=== PATIENT | female | born 1975 ===

== ENCOUNTER 2023-11-17 00:33 | Day surgery (SDC) | payer OTHER, SELFPAY ==
[2023-11-10 16:02] VITALS: BMI 40.3
--- NOTE | 2023-11-16 17:27 | WPDANESEPP ---
Anes - Eval Pre Procedure Procedure: Operation Date: 11/17/23 09:00 Proposed Procedures p Esophagogastroduodenoscopy & Colonoscopy - Tl Floyd MD Date/Time: 11/16/23 17:27 Pre Op Diagnosis: Anemia unspecified Patient Data Age: 48 Gender: F Height: 1.6 m Weight: 103.25 kg Allergies Allergy/AdvReac Type Severity Reaction Status Date / Time tramadol Allergy Severe Seizure Verified 11/10/23 15:56 Penicillins Allergy Unknown Unknown Verified 11/10/23 15:56 Home Medications Medication Instructions Recorded Confirmed Type aspirin 81 mg tablet 81 mg PO DAILY 11/10/23 11/10/23 History atorvastatin 10 mg tablet 10 mg PO HS 11/10/23 11/10/23 History citalopram 40 mg tablet 40 mg PO DAILY 11/10/23 11/10/23 History ferrous sulfate 324 mg (65 mg 324 mg PO EVERY OTHER DAY 11/10/23 11/10/23 History iron) tablet,delayed release folic acid 1 mg tablet 1 mg PO DAILY 11/10/23 11/10/23 History ibuprofen 600 mg tablet 600 mg PO BID PRN Pain 11/10/23 11/10/23 History lisinopril 20 mg tablet 20 mg PO DAILY 11/10/23 11/10/23 History prazosin 1 mg capsule 1 mg PO HS 11/10/23 11/10/23 History semaglutide 1 mg/dose (4 mg/3 mL) 2 mg subcut WEEKLY 11/10/23 11/10/23 History subcutaneous pen injector Patient hx anesthesia problems: none Family hx anesthesia problems: none Results Review: All pre-operative results and documents have been reviewed as part of the pre-operative evaluation. [facility] Past Medical History Medical History (Updated 11/16/23 @ 17:28 by Naomi Melvin CRNA) Anemia Anxiety Depression Diabetes type 2, controlled Fatty liver HLD (hyperlipidemia) HTN (hypertension) Social History Social History Living arrangements: incarcerated Exam Day of Procedure 11/16/23 17:27
[2023-11-17 07:26] VITALS: BP 135/90; PULSE 90; RESP 20; TEMP 36.3; O2SAT 96
--- NOTE | 2023-11-17 07:33 | P.PNAN_ITS ---
Anes - Eval Final PreProcedure Day of Procedure 11/17/23 07:33 Patient weight: obese Heart: regular rate and rhythm Lungs: clear to auscultation and normal air movement Airway: Mallampati scale class III Neurological: alert and oriented Last oral intake: >/= 8 hours ASA classification: III Emergent: no Anesthetic plan: proceed Anesthesia type and monitoring: general GIVS Results Review: All pre-operative results and documents have been reviewed as part of the pre- operative evaluation. Informed Consent: The patient's anesthetic plan and its attendant risks and benefits were discussed with the patient/family/POA. Questions were solicited and answers provided to the satisfaction of the patient/family/POA.
[2023-11-17] MEDS: LACTATED RINGERS 1,000 ML 150 ML IV CONT (07:43)
[2023-11-17 07:47] LABS: Glucose Point of Care 95 mg/dl (65-105)
--- NOTE | 2023-11-17 07:48 | P.PNAN_ITS ---
Anes - Eval Final PreProcedure Day of Procedure 11/17/23 07:48 Patient weight: morbidly obese Heart: regular rate and rhythm Lungs: clear to auscultation Airway: Mallampati scale class III and special considerations poor dentition Neurological: alert and oriented Last oral intake: >/= 8 hours ASA classification: III Emergent: no Anesthetic plan: proceed Anesthesia type and monitoring: general and standard monitoring Results Review: All pre-operative results and documents have been reviewed as part of the pre- operative evaluation. Informed Consent: The patient's anesthetic plan and its attendant risks and benefits were discussed with the patient/family/POA. Questions were solicited and answers provided to the satisfaction of the patient/family/POA.
[2023-11-17 08:02] LABS: BEDSIDEPREGUCG Negative
--- NOTE | 2023-11-17 09:50 | WPDANESEPPF ---
Anes - Initial Pre Proc Eval Procedure: Operation Date: 11/17/23 09:00 Proposed Procedures p Esophagogastroduodenoscopy & Colonoscopy - Tl Floyd MD Date/Time: 11/17/23 09:50 Surgeon: Tl Floyd MD Pre Op Diagnosis: Anemia unspecified Patient Data Age: 48 Gender: F Height: 1.6 m Weight: 97.8 kg Last Vital Signs Temp 97.4 F L 11/17/23 07:26 Pulse 90 11/17/23 07:26 Resp 20 11/17/23 07:26 BP 135/90 11/17/23 07:26 Pulse Ox 96 11/17/23 07:26 O2 Del Method Room Air 11/17/23 07:26 Allergies Allergy/AdvReac Type Severity Reaction Status Date / Time tramadol Allergy Severe Seizure Verified 11/17/23 07:21 Penicillins Allergy Unknown Unknown Verified 11/17/23 07:21 Home Medications Medication Instructions Recorded Confirmed Type aspirin 81 mg tablet 81 mg PO DAILY 11/10/23 11/17/23 History atorvastatin 10 mg tablet 10 mg PO HS 11/10/23 11/17/23 History citalopram 40 mg tablet 40 mg PO DAILY 11/10/23 11/17/23 History ferrous sulfate 324 mg (65 mg 324 mg PO EVERY OTHER DAY 11/10/23 11/17/23 History iron) tablet,delayed release folic acid 1 mg tablet 1 mg PO DAILY 11/10/23 11/17/23 History ibuprofen 600 mg tablet 600 mg PO BID PRN Pain 11/10/23 11/17/23 History lisinopril 20 mg tablet 20 mg PO DAILY 11/10/23 11/17/23 History prazosin 1 mg capsule 1 mg PO HS 11/10/23 11/17/23 History semaglutide 1 mg/dose (4 mg/3 mL) 2 mg subcut WEEKLY 11/10/23 11/17/23 History subcutaneous pen injector Laboratory Tests 11/17/23 11/17/23 07:35 07:57 POC Capillary Glucose 95 mg/dl (65-105) POC Urine HCG, Qual Negative POC Ur Preg QC Yes Patient hx anesthesia problems: none Family hx anesthesia problems: none Results Review: All pre-operative results and documents have been reviewed as part of the pre-operative evaluation. [facility] Past Medical History Medical History Anemia Anxiety Depression Diabetes type 2, controlled Fatty liver HLD (hyperlipidemia) HTN (hypertension) Social History Social History Living arrangements: incarcerated Anes - Eval Final PreProcedure Day of Procedure 11/17/23 09:50 Patient weight: obese Heart: regular rate and rhythm Lungs: clear to auscultation Airway: Mallampati scale and special considerations (Dentition in very poor condition, none loose per pts report. ) Neurological: alert and oriented Last oral intake: >/= 8 hours ASA classification: III Emergent: no Anesthetic plan: proceed Anesthesia type and monitoring: general GIVS and standard monitoring Results Review: All pre-operative results and documents have been reviewed as part of the pre-operative evaluation. HTN, DM, anemia for EGD/colonoscopy. Pt on oxempic, last dose 7 days ago. Informed Consent: The patient's anesthetic plan and its attendant risks and benefits were discussed with the patient/family/POA. Questions were solicited and answers provided to the satisfaction of the patient/family/POA.
--- NOTE | 2023-11-17 09:51 | P.HP_ITS ---
History of Present Illness History of Present Illness Consent: Risks, benefits, and alternatives have been discussed and questions answered. Patient agrees to proceed with procedure. Chief complaint: Anemia unspecified Narrative: Heather Pierre is a 48 year old female here for egd and colonoscopy, never had scopes. She is a prisoner, c/o dysphagia, also noted to have anemia, no overt gib. [facility] Past Medical History Medical History (Updated 11/17/23 @ 09:53 by Tl Floyd MD) Anemia Anxiety Colon cancer screening Depression Diabetes type 2, controlled Dysphagia Fatty liver HLD (hyperlipidemia) HTN (hypertension) Social History Social History Living arrangements: incarcerated Meds Home Medications and Allergies Home Medications Medication Instructions Recorded Confirmed Type aspirin 81 mg tablet 81 mg PO DAILY 11/10/23 11/17/23 History atorvastatin 10 mg tablet 10 mg PO HS 11/10/23 11/17/23 History citalopram 40 mg tablet 40 mg PO DAILY 11/10/23 11/17/23 History ferrous sulfate 324 mg (65 mg 324 mg PO EVERY OTHER DAY 11/10/23 11/17/23 History iron) tablet,delayed release folic acid 1 mg tablet 1 mg PO DAILY 11/10/23 11/17/23 History ibuprofen 600 mg tablet 600 mg PO BID PRN Pain 11/10/23 11/17/23 History lisinopril 20 mg tablet 20 mg PO DAILY 11/10/23 11/17/23 History prazosin 1 mg capsule 1 mg PO HS 11/10/23 11/17/23 History semaglutide 1 mg/dose (4 mg/3 mL) 2 mg subcut WEEKLY 11/10/23 11/17/23 History subcutaneous pen injector Allergies Allergy/AdvReac Type Severity Reaction Status Date / Time tramadol Allergy Severe Seizure Verified 11/17/23 07:21 Penicillins Allergy Unknown Unknown Verified 11/17/23 07:21 Vital Signs Vital Signs - 24 hr 11/17/23 07:26 Temperature 97.4 F L Pulse Rate 90 Respiratory Rate 20 Blood Pressure 135/90 Pulse Oximetry 96 Oxygen Delivery Room Air Exam Const: General: comfortable and no acute distress HENMT: Face/Nose/Sinus: Normal nares present Eyes: General: appearance normal, both eyes and all related structures Neck: Neck: no JVD Resp: Auscultation: clear to auscultation bilaterally Cardio: Rate: regular rate Rhythm: regular rhythm GI: Inspection: non-distended GI Palp: Yes Soft to palpation Skin: General skin exam: normal color Neuro: General: gait normal Speech: normal speech Extrem: General: normal to inspection Psych: Mental Status: mental status grossly normal Assessment and Plan Assessment and plan (1) Colon cancer screening: Code(s): Z12.11 - Encounter for screening for malignant neoplasm of colon Status: Acute Assessment and Plan: colonoscopy (2) Dysphagia: Code(s): R13.10 - Dysphagia, unspecified Status: Acute Assessment and Plan: egd (3) Anemia: Code(s): D64.9 - Anemia, unspecified Status: Acute
[2023-11-17] MEDS: BENZOCAINE (*SP) 60 ML SPRAY CAN (HURRICAINE) 1 SPRAY MUCOUS MEM (09:54)
--- NOTE | 2023-11-17 10:10 | SUR.OPER ---
EGD start time 957, end time 1005. Colonoscopy start time 1010.
[2023-11-17 10:22] VITALS: BP 139/85; PULSE 92; RESP 20; O2SAT 99
[2023-11-17 10:32] VITALS: BP 155/89; PULSE 90; RESP 18; O2SAT 100
[2023-11-17 10:42] VITALS: BP 130/69; PULSE 88; RESP 18; O2SAT 100
== END 2023-11-17 11:09 | disposition home or self-care (01) ==
PROVIDERS: Anesthesiology; Visit Provider Internal Medicine Gastroenterology
PROC: 0DJ08ZZ Inspection of Upper Intestinal Tract, Via Natural or Artificial Opening Endoscopic (ICD-10-PCS; CPT 43235; principal; 2023-11-17 09:00)
DX: Z12.11 Encounter for screening for malignant neoplasm of colon (principal); D64.9 Anemia, unspecified; K21.00 Gastro-esophageal reflux disease with esophagitis, without bleeding; K22.2 Esophageal obstruction; K44.9 Diaphragmatic hernia without obstruction or gangrene; E11.9 Type 2 diabetes mellitus without complications; I10 Essential (primary) hypertension; E78.5 Hyperlipidemia, unspecified; K76.0 Fatty (change of) liver, not elsewhere classified; F41.9 Anxiety disorder, unspecified; F32.A Depression, unspecified; Z79.82 Long term (current) use of aspirin; Z79.85 Long-term (current) use of injectable non-insulin antidiabetic drugs
CPT/HCPCS: 43249; 43239; 45378; 82948; 88305; C1726; J2001; J2704; J7120